=== PATIENT | female | born 1945 | race Caucasian/White ===

== ENCOUNTER 2017-04-15 16:00 | Outpatient (CLI) | payer MEDICARE ==
--- NOTE | 2017-04-16 08:37 | XRAY Report ---
RIGHT FOOT, THREE VIEWS: 04/15/2017 CLINICAL HISTORY: Pain in the right foot. COMPARISON: None. FINDINGS: Osteoporosis is noted. Bunion deformity of moderate degree is seen of the right 1st MP corbin int. Moderate degree of narrowing of the right 1st MP joint is seen. Subchondral cyst formation is noted along the medial aspect of the head of the right 1st metatarsal. Bony eburnation is seen about the head of the right 1st metatarsal. Adjacent soft tissue swelling is noted along the medial aspec t of the right 1st MP joint. Moderate degree of narrowing is noted at the articulation between the base of the 1st metatarsal and adjacent medial cuneiform bone. Prominent subchondral cyst formation is seen at the base of the 2nd metatarsal and mid cuneiform bone. Moderate degree of narrowing is seen between the base of the 3rd metatarsal and the middle cuneiform bone. Moderate degree of joint space narrowing is seen between t he base of the 4th metatarsal and cuboid bone. Mild narrowing is noted between the anterior aspect of the talus and navicular bone. IMPRESSION: 1. MILD OSTEOPOROSIS. 2. BUNION DEFORMITY IS NOTED AT THE RIGHT 1ST MP JOINT WITH ASSOCIATED MODERATE DEGREE OF OSTEOARTHR ITIS. ASSOCIATED MILD SOFT TISSUE SWELLING IS NOTED ALONG THE MEDIAL ASPECT OF THIS JOINT. 3. MODERATE DEGREE OF OSTEOARTHRITIS IS NOTED AT THE ARTICULATIONS BETWEEN THE BASE OF THE 1ST, 2ND, AND 3RD METATARSALS AND THE ADJACENT CUNEIFORM BONES. JOB #: [id number] EXT JOB #:[id number]
== END 2017-04-15 16:01 | disposition home or self-care (01) ==
LOC: DI 16:00
PROVIDERS: ATTEND Podiatrist
DX: M19.071 Primary osteoarthritis, right ankle and foot (principal); M21.621 Bunionette of right foot; M81.0 Age-related osteoporosis without current pathological fracture

== ENCOUNTER 2017-05-05 10:39 | Outpatient (CLI) | payer MEDICARE ==
--- NOTE | 2017-05-06 13:45 | DEXA Report ---
DEXA SCAN: 05/05/2017 CLINICAL INDICATION: Postmenopausal. TECHNIQUE: Dual energy x-ray absorptiometry (DXA) was performed on a [employer] system. Regions measured are the AP spine, femoral neck, and, if needed, forearm. COMPARISON: None. In accordance with the International Society for Clinical Densitometry (ISCD) guidelines, data from previous exams may be reanalyzed using current recommendations and techniques. This is done to allow a more accurate basis for comparison with the current study. FINDINGS: The data for the lumbar spine is as follows: REGION BMD (g/cm/cm) T-SCORE Z-SCORE L1 0.902 -1.9 -0.9 L2 0.865 -2.8 -1.8 L3 1.004 -1.6 -0.7 L4 1.039 -1.3 -0.4 TOTAL 0.959 -1.8 -0.9 NOTE: All evaluable vertebrae are used for classification. The data for the hip is as follows: REGION BMD (g/cm/cm) T-SCORE Z-SCORE Neck 0.890 -1.1 0.2 TOTAL 0.987 -0.2 0.9 NOTE: The femoral neck or total proximal femur, whichever is lowest, is used for classification. IMPRESSION: THE WHO CLASSIFICATION BASED ON THE INTERNATIONAL REFERENCE STANDARD IS OSTEOPENIA. THE FRACTURE RISK IS INCREASED. RECOMMENDATION: Patients with diagnosis of osteoporosis or osteopenia should have regular bone mineral density assessment. For those eligible for Medicare, routine testing is allowed once every 2 years. Testing frequency can be increased for patients who have rapidly progressing disease or for those who are receiving medical therapy to restore bone mass. COMMENT: World Health Organization (WHO) definitions for osteoporosis and osteopenia: NORMAL BMD: T-score at -1.0 or higher, fracture risk is low. OSTEOPENIA BMD: T-score between -1.0 and -2.5, fracture risk is increased. OSTEOPOROSIS BMD: T-score at -2.5 or lower, fracture risk high. National Osteoporosis Foundation recommends: 1. Obtain adequate dietary calcium (at least 1200 mg per day) and vitamin D (400 -800 international units per day). 2. Participate, as appropriate, in regular weightbearing and muscle- strengthening exercise. 3. Avoid tobacco use and reduce alcohol and caffeine intake. 4. For more detailed information see the website at www.NOF.org. MTDD
== END 2017-05-05 10:40 | disposition home or self-care (01) ==
LOC: DI 10:39
PROVIDERS: ATTEND Podiatrist
DX: M81.0 Age-related osteoporosis without current pathological fracture (principal); M85.89 Other specified disorders of bone density and structure, multiple sites
CPT/HCPCS: 77080

== ENCOUNTER 2017-12-28 10:43 | Outpatient (CLI) | payer MEDICARE ==
--- NOTE | 2017-12-28 14:49 | XRAY Report ---
DATE OF SERVICE: 12/28/2017 TWO VIEW CHEST: 12/28/2017 CLINICAL INDICATION: Upper respiratory infection. COMPARISON: 10/05/2009. FINDINGS: Frontal and lateral views of the chest demonstrate a normal cardiac silhouette. The lungs remain clear. No effusion or pneumothorax is present. IMPRESSION: NORMAL CHEST, UNCHANGED. TD: 12/28/2017 14:49
== END 2017-12-28 10:44 | disposition home or self-care (01) ==
LOC: DI 10:43
PROVIDERS: ATTEND Internal Medicine
DX: J06.9 Acute upper respiratory infection, unspecified (principal)
CPT/HCPCS: 71046

== ENCOUNTER 2018-04-19 11:40 | Outpatient (CLI) | payer MEDICARE ==
--- NOTE | 2018-04-19 12:46 | CT Report ---
CT SINUSES WITHOUT CONTRAST: 04/19/2018 CLINICAL INDICATION: Headache, chronic sinusitis. TECHNIQUE: Axial CT images of the sinuses were obtained without intravenous contrast, following which sagittal and coronal reconstructions were performed. FINDINGS: There is minimal mucosal thickening in the inferior aspects of the maxillary sinuses bilaterally. There is leftward deviation and spurring of the nasal septum. The ostiomeatal units are patent bilaterally. Patchy right ethmoid air cell opacification is present. The visualized intraorbital contents appear unremarkable. No osseous destruction is seen. IMPRESSION: MINIMAL CHRONIC SINUS DISEASE. LEFTWARD DEVIATION AND SPURRING OF THE NASAL SEPTUM. CT DOSE REDUCTION STATEMENT In accordance with CT protocol optimization, one or more of the following dose reduction techniques were utilized for this exam: automated exposure control, adjustment of mA and/or KV based on patient size, or use of iterative reconstructive technique. TD: 04/19/2018 12:27
== END 2018-04-19 11:41 | disposition home or self-care (01) ==
LOC: DI 11:40
PROVIDERS: ATTEND Otolaryngology
DX: J32.8 Other chronic sinusitis (principal); R51 Headache
CPT/HCPCS: 70486

== ENCOUNTER 2018-10-21 11:05 | Outpatient (CLI) | payer MEDICARE ==
--- NOTE | 2018-10-24 09:43 | Mammography Report ---
Reason: SCREENING MAMMO Procedure Date: 10/21/2018 Accession Number: [id number] / [id number] Procedure: LUCERO - Screening Mammo w/Gerardo CPT Code: FULL RESULT: EXAM: Screening Mammo w/Gerardo DATE: 10/21/2018 11:35 AM CLINICAL HISTORY: Screening encounter. History of nulliparity and family history of breast cancer in a grandmother at age 62. TECHNIQUE: Bilateral CC and MLO views were obtained. COMPARISON: 07/16/2016 through 10/12/2011. FINDINGS: The breasts demonstrate scattered fibroglandular densities bilaterally. A coarse typically benign calcification is noted in the right breast. No suspicious masses, clustered microcalcifications, or regions of architectural distortion are identified. IMPRESSION: Benign findings RECOMMENDATION: Routine annual screening unless otherwise clinically indicated. BIRADS CATEGORY 2: Benign findings STANDARD QUALIFYING STATEMENTS: 1. This examination was not reviewed with the aid of Computer-Aided Detection (CAD). 2. A negative or benign imaging report should not preclude biopsy if clinically suspicious findings are present. 3. Dense breasts may obscure an underlying neoplasm. 4. This examination was reviewed without the aid of 3D breast imaging (tomosynthesis).
== END 2018-10-21 11:06 | disposition home or self-care (01) ==
LOC: DI 11:05
PROVIDERS: ATTEND Internal Medicine
DX: Z12.31 Encounter for screening mammogram for malignant neoplasm of breast (principal); Z80.3 Family history of malignant neoplasm of breast
CPT/HCPCS: 77063; 77067

== ENCOUNTER 2019-03-07 16:39 | Observation (INO) | payer MEDICARE ==
--- NOTE | 2019-03-07 17:05 | ED Physician Documentation ---
PD HPI CHEST PAIN - Stated complaint Stated Complaint: ABNORMAL EKG/SENT BY DR - Chief complaint Chief Complaint: Cardiac - History obtained from History obtained from: Patient - History of Present Illness Timing - onset: Other (2 weeks intermittent substernal chest pressure, non radiating, sometimes exertional, sometimes not. Today more constant since 1pm, went to her MDs office, concern for abn EKG and referred to ED.) Review of Systems Ten Systems: 10 systems reviewed and negative Constitutional: reports: Fatigue Nose: denies: Rhinorrhea / runny nose, Congestion Cardiac: reports: Chest pain / pressure. 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: Hysterectomy, Other - Present Medications Home Medications: Ambulatory Orders Medication Instructions Recorded Confirmed Ibuprofen [Advil] 200 mg PO DAILY 03/09/16 03/07/19 - Allergies Allergies/Adverse Reactions: Allergies Allergy/AdvReac Type Severity Reaction Status Date / Time Sulfa (Sulfonamide Allergy Respiratory Verified 03/07/19 16:51 Antibiotics) - Social History Does the pt smoke?: No Does the pt drink ETOH?: No - Family History Family history: reports: Non contributory PD ED PE NORMAL - Vitals Vital signs reviewed: Yes - General General: Alert and oriented X 3, No acute distress - HEENT HEENT: PERRL, EOMI - Neck Neck: Supple, no meningeal sign, No bony TTP - Cardiac Cardiac: RRR, No murmur - Respiratory Respiratory: No respiratory distress, Clear bilaterally - Abdomen Abdomen: Soft, Non tender - Back Back: No CVA TTP - Derm Derm: Normal color, Warm and dry - Extremities Extremities: No edema, No calf tenderness / cord - Neuro Neuro: Alert and oriented X 3, Normal speech Results - Vitals Vitals: Vital Signs - 24 hr 03/07/19 16:49 Temperature 36.3 C L Heart Rate 92 Respiratory 15 Rate Blood Pressure 190/94 H O2 Saturation 97 Oxygen O2 Source Room air - EKG (time done) 1657 Rate: Rate (enter#) (89) Rhythm: NSR [place]: Normal Intervals: Normal [place] QRS: Normal Ischemia: Normal ST segments Computer interpretation: Agree with computer - Labs Labs: Laboratory Tests 03/07/19 03/07/19 03/07/19 16:55 16:55 16:55 WBC 7.2 RBC 4.56 Hgb 13.7 Hct 41.9 MCV 91.7 MCH 30.0 MCHC 32.7 RDW 13.5 Plt Count 235 MPV 7.7 L Neut # (Auto) 4.8 Lymph # (Auto) 1.7 [place] # (Auto) 0.5 Eos # (Auto) 0.2 Baso # (Auto) 0.1 Absolute Nucleated RBC 0.00 Nucleated RBC % 0.0 Sodium 136 Potassium 3.9 Chloride 103 Carbon Dioxide 25 Anion Gap 8.0 BUN 20 Creatinine 0.6 Estimated GFR (MDRD) 98 Glucose 93 Calcium 9.8 Total Bilirubin 0.6 AST 23 ALT 20 Alkaline Phosphatase 75 Troponin I < 0.04 Total Protein 7.0 Albumin 4.5 Globulin 2.5 Albumin/Globulin Ratio 1.8 Lipase 30 PD MEDICAL DECISION MAKING - ED course ED course: 73-year-old woman with a story concerning for crescendo angina. EKG and biomarkers are negative here. Spoke with Dr. Dugan for observation at 5:35 PM. Departure - Departure Disposition: ED Place in Observation Clinical Impression: Chest pain Condition: Stable
[2019-03-07 17:08] LABS: BASOPHILS # (AUTO) 0.1 10^3/uL (0.0-0.1); BASOPHILS % (AUTO) 0.9 %; EOSINOPHILS # (AUTO) 0.2 10^3/uL (0.0-0.7); HGB - HEMOGLOBIN 13.7 g/dL (12.0-16.0); LYMPHOCYTES # (AUTO) 1.7 10^3/uL (1.5-3.5); LYMPHOCYTES % (AUTO) 23.5 %; MEAN CORPUSCULAR HGB CONC 32.7 g/dL (32.0-36.0); MEAN CORPUSCULAR VOLUME 91.7 fL (81.0-99.0); MEAN PLATELET VOLUME 7.7 fL (7.9-10.8); MONOCYTES # (AUTO) 0.5 10^3/uL (0.0-1.0); MONOCYTES % (AUTO) 6.4 %; NEUTROPHILS # (AUTO) 4.8 10^3/uL (1.5-6.6); NEUTROPHILS % (AUTO) 66.2 %; PLT - PLATELET COUNT 235 10^3/uL (130-450); RED BLOOD COUNT 4.56 10^6/uL (4.20-5.40); RED CELL DISTRIBUTION WIDTH 13.5 % (12.0-15.0); WHITE BLOOD COUNT 7.2 x10^3/uL (4.8-10.8)
[2019-03-07 17:19] LABS: ALBUMIN 4.5 g/dL (3.2-5.5); ALBUMIN/GLOBULIN RATIO 1.8 (1.0-2.2); BILIRUBIN,TOTAL 0.6 mg/dL (0.2-1.0); CALCIUM 9.8 mg/dL (8.5-10.3); CREATININE 0.6 mg/dL (0.4-1.0)
[2019-03-07] MEDS ORDERED: ASPIRIN CHEW 81 MG TABLET PO STA (17:33)
[2019-03-07] MEDS ORDERED: NITROGLYCERIN 2% PASTE TOP STA (17:33)
[2019-03-07] MEDS ORDERED: METOPROLOL TARTRATE 50 MG TABLET PO STA (17:33)
[2019-03-07] MEDS ORDERED: MORPHINE 2 MG/ML SYRINGE IVP PRN (17:49)
[2019-03-07] MEDS ORDERED: ZOLPIDEM 5 MG TABLET PO PRN (17:49)
[2019-03-07] MEDS ORDERED: SODIUM CHLORIDE FLUSH 0.9% 10 ML SYRINGE IVP PRN (17:49)
[2019-03-07] MEDS ORDERED: ONDANSETRON 4 MG/2 ML VIAL IVP PRN (17:49)
--- NOTE | 2019-03-07 17:56 | HISTORY & PHYSICAL EXAMINATION ---
Chief Complaint - Chief Complaint Chief Complaint: chest pain History of Present Illness - History of Present Illness HPI Comment/Other: Mr. Rivera is 73-yrs-old female without significant medical history, who present ER complain of 2 weeks intermittent substernal chest pressure and pain. She report her chest pain is consistent today. She had 2 weeks intermittent substernal chest pressure and pain before. Her chest pain located anterior left chest, left shoulder and left back. She also report she felt shortness of breath sometimes on exertion. She report this has never happened to her before. She denies nausea, vomiting, sweating associated with her chest pain. She went to her PCP office. Her PCP office concern her abnormal EKG and referred her to ED. Her initial troponin is negative, D-dimer is less 200. EKG reveals SR. Pt's vital is hemodynamical stable in ER. Pt is admitted for chest pain and workup. History - Past Medical History Cardiovascular: reports: Murmur Respiratory: reports: Other Endocrine/Autoimmune: reports: None GI: reports: Colon polyps : reports: None HEENT: reports: Chronic sinusitis Psych: reports: Claustrophobia Musculoskeletal: reports: Osteoarthritis Derm: reports: None MRSA Hx?: No - Past Surgical History General: reports: Appendectomy, Colonoscopy Ortho: reports: Arthroscopic surgery /[employer]OR [employer] HOME [employer]ALTH SERVICES: reports: Hysterectomy, Other - Family & Social History Family History: Mother: , Cancer, Father: , Cancer Family History Comment/Other: pt report her father and mother from cancer. she did not know which kind of cancer. She did not and she did not have child. she is living in [facility] Living arrangement: At home Social History Notes: pt report she never smoke. she has no issue for alcohol and drug abuse. - POLST POLST Status: Full Code Meds/Allgy - Home Medications Home Medications: Ambulatory Orders Medication Instructions Recorded Confirmed Ibuprofen [Advil] 200 mg PO DAILY 03/09/16 03/07/19 - Allergies Allergies/Adverse Reactions: Allergies Allergy/AdvReac Type Severity Reaction Status Date / Time Sulfa (Sulfonamide Allergy Respiratory Verified 03/07/19 16:51 Antibiotics) Review of Systems - Constitutional Constitutional: denies: Fatigue, Fever, Chills, Malaise, Weakness, Poor appetite, Diaphoresis, Night sweats - Eyes Eyes: denies: Pain, Irritation, Amaurosis, Blurred vision, Spots in vision, Field loss, Vision loss, Dipolpia - Ears, Nose & Throat Ears, Nose & Throat: denies: Ear pain, Hearing loss, Hearing aids, Tinnitus, Vertigo, Nasal pain, Nasal discharge, Nosebleeds, Nasal obstruction, Nasal congestion, Postnasal drainage, Dentures, Sore throat, Hoarseness, Mouth lesions, Bleeding gums - Cardiovascular Cariovascular: reports: Chest pain, Exertional dyspnea. denies: Irregular heart rate, Palpitations, Edema, Lightheadedness, Syncope, Decr. exercise tolerance, Orthopnea - Respiratory Respiratory: denies: Cough, Sputum production, Wheezing, Snoring, Hemoptysis, Orthopnea, SOB at rest, SOB with exertion, Apnea, Stridor - Gastrointestinal Gastrointestinal: denies: Abdominal pain, Abdominal distention, Constipation, Diarrhea, Change in bowel habits, Rectal bleeding, Black stools, Bloody stools, Nausea, Vomiting, Bile emesis, Vel blood emesis, Coffee grounds emesis, Reflux/heartburn - Genitourinary Genitourinary: denies: Dysuria, Frequency, Urgency, Hematuria, Incontinence, Flank pain, Nocturia, Urethral discharge - Musculoskeletal Musculoskeletal: denies: Muscle pain, Back pain, Muscle aches, Stiffness, Limited range of motion, Muscle weakness, Gout, Joint pain - Integumentary Integumentary: denies: Rash, Pruritis, Lesions, Dryness, Lumps, Acne, Pigment changes, Nail changes - Neurological Neurological: denies: General weakness, Focal weakness, Headache, Dizziness, Numbness, Memory problems, Pre-existing deficit, Abnormal gait, Seizures, Incoordination - Psychiatric Psychiatric: denies: Depression, Anxiety, Suicidal, Delusions, Hallucinations, Homicidal - Endocrine Endocrine: denies: Polyuria, Polydypsia, Polyphagia, Intolerance to cold - Hematologic/Lymphatic Hematologic/Lymphatic: denies: Anemia, Bruising, Petechiae, Blood clots, Lymphadenopathy, Bleeding tendencies Prior Level of Functionality: pt is living independently Exam - Vital Signs Reviewed Vital Signs: Yes Vital Signs: Vital Signs x48h Temp Pulse Resp BP Pulse Ox 03/07/19 17:39 77 15 151/73 H 97 03/07/19 16:49 36.3 C L 92 15 190/94 H 97 - Physical Exam General Appearance: positive: No acute distress, Alert. negative: Lethargic Eyes Bilateral: positive: Normal inspection, PERRL, No lid inflammation, Conjunctivae nml ENT: positive: ENT inspection nml, Pharynx nml, No signs of dehydration. negative: Purulent nasal drainage, Pharyngeal erythema, Oral lesions Neck: positive: Nml inspection, Thyroid nml, No JVD, Trachea midline. negative: Thyromegaly, Lymphadenopathy (R), Lymphadenopathy (L), Stiff neck, Swelling/bruising, Tracheal deviation Respiratory: positive: Chest non-tender, No respiratory distress, Breath sounds nml. negative: Wheezes, Rales, Rhonchi Cardiovascular: positive: Regular rate & rhythm, No murmur, No gallop. negative: Irregularly irregular, Extrasystoles, Tachycardia, Bradycardia, JVD present, Systolic murmur, Diastolic murmur Peripheral Pulses: positive: 2+ Abdomen: positive: Non-tender, No organomegaly, Nml bowel sounds, No distention. negative: Tenderness, Guarding, Rebound Back: positive: Nml inspection. negative: CVA tenderness (R), CVA tenderness (L) Skin: positive: Color nml, No rash, Warm, Dry. negative: Cyanosis, Diaphoresis, Pallor Extremities: positive: Non-tender, Full ROM, Nml appearance. negative: Calf tenderness, Joint swelling, Nancy's sign/cords Neurologic/Psychiatric: positive: Oriented x3, Motor nml, Sensation nml, Mood/affect nml. negative: Weakness, Sensory loss, Facial droop, Slurred/abnml speech, Depressed mood/affect Sepsis Event Note (H) - Evaluation Current Stage of Sepsis: Ruled out Conclusion/Plan - Problem List (1) Chest pain Conclusion/Plan: pt has no cardiac history, has no any cardiac workup. pt also report she had SOB when she walked. Chest pain is more likely pressure on anterior, shoulder and neck. initial troponin and EKG are unremarkable. serial troponin start on Aspirin Nitro PRN, Morphine PRN ECHO stress test, Lexican, pt prefer to have, will followup the result on tele and vital monitor Qualifiers: Chest pain type: unspecified Qualified Code(s): R07.9 - Chest pain, unspecified (2) Shortness of breath on exertion Conclusion/Plan: pt report SOB on exertion, it is new to pt. check the D-dimer, negative. D-dimer specifically is high, not indicate on clots on lung will do Stress test on tomorrow (3) HTN (hypertension) Conclusion/Plan: pt has elevated BP on ER. it has no HTN hx. it could be caused by anxiety and distress on hospital add PRN hydralazine tele and vital monitor (4) Do not intubate, cardiopulmonary resuscitation (CPR)-only code status Conclusion/Plan: pt request DNR clearly - Lab Results Fish Bones: 03/08/19 04:15 03/08/19 04:15 Core Measures - Anticipated LOS I expect patient to be DC'd or transferred within 96 hours.: Yes - DVT/VTE - Prophylaxis VTE/DVT Device ordered at admit?: Yes VTE/DVT Prophylaxis med ordered at admit?: Yes
[2019-03-07] MEDS ORDERED: hydrALAZINE INJ 20 MG/ML VIAL IVP PRN (18:11)
--- NOTE | 2019-03-07 20:25 | XRAY Report ---
Reason: chest pain Procedure Date: 03/07/2019 Accession Number: [id number] / [id number] Procedure: XR - Chest 1 View X-Ray CPT Code: 24310 FULL RESULT: EXAM: CHEST RADIOGRAPHY EXAM DATE: 03/07/2019 06:29 PM. CLINICAL HISTORY: Chest pain. COMPARISON: CHEST 2 VIEW 12/28/2017 11:16 AM. TECHNIQUE: 1 view. FINDINGS: Lungs/Pleura: No focal opacities evident. No pleural effusion. No pneumothorax. Mediastinum: Within exam limitations, the cardiomediastinal contour is normal. Other: ECG leads overlie the chest. IMPRESSION: No acute findings. RADIA
[2019-03-07] MEDS: FAMOTIDINE 20 MG TABLET PO SCH (21:02)
[2019-03-07] MEDS: ACETAMINOPHEN 325 MG TABLET PO PRN (21:02)
[2019-03-08] MEDS: SODIUM CHLORIDE FLUSH 0.9% 10 ML SYRINGE IVP SCH ×2 (01:20→08:38)
[2019-03-08 04:51] LABS: BASOPHILS % (AUTO) 0.7 %; EOSINOPHILS # (AUTO) 0.3 10^3/uL (0.0-0.7); EOSINOPHILS % (AUTO) 4.5 %; HGB - HEMOGLOBIN 12.5 g/dL (12.0-16.0); LYMPHOCYTES # (AUTO) 1.9 10^3/uL (1.5-3.5); LYMPHOCYTES % (AUTO) 32.2 %; MEAN CORPUSCULAR HEMOGLOBIN 30.1 pg (27.0-31.0); MEAN CORPUSCULAR HGB CONC 32.8 g/dL (32.0-36.0); MEAN CORPUSCULAR VOLUME 91.7 fL (81.0-99.0); MEAN PLATELET VOLUME 7.8 fL (7.9-10.8); MONOCYTES # (AUTO) 0.5 10^3/uL (0.0-1.0); MONOCYTES % (AUTO) 9.2 %; NEUTROPHILS # (AUTO) 3.1 10^3/uL (1.5-6.6); NEUTROPHILS % (AUTO) 53.4 %; PLT - PLATELET COUNT 223 10^3/uL (130-450); RED BLOOD COUNT 4.16 10^6/uL (4.20-5.40); RED CELL DISTRIBUTION WIDTH 13.4 % (12.0-15.0); WHITE BLOOD COUNT 5.7 x10^3/uL (4.8-10.8)
[2019-03-08 05:05] LABS: ALBUMIN 3.7 g/dL (3.2-5.5); ALBUMIN/GLOBULIN RATIO 1.6 (1.0-2.2); BILIRUBIN,TOTAL 0.7 mg/dL (0.2-1.0); CALCIUM 9.5 mg/dL (8.5-10.3); CREATININE 0.6 mg/dL (0.4-1.0); MAGNESIUM 2.4 mg/dL (1.7-2.8)
[2019-03-08] MEDS ORDERED: ASPIRIN 325 MG TABLET PO SCH (08:00)
[2019-03-08] MEDS: FAMOTIDINE 20 MG TABLET PO SCH (08:33)
[2019-03-08] MEDS ORDERED: NITROGLYCERIN SL 0.4 MG TABLET SL PRN (08:45)
[2019-03-08] MEDS ORDERED: POLYETHYLENE GLYCOL 3350 17 GM PACKET PO SCH (09:00)
[2019-03-08] MEDS ORDERED: ENOXAPARIN 40 MG/0.4 ML SYRINGE SUBQ SCH (09:00)
[2019-03-08] MEDS: ACETAMINOPHEN 325 MG TABLET PO PRN (09:20)
[2019-03-08] MEDS ORDERED: REGADENOSON 0.4 MG/5 ML SYRINGE IVP ONE ×2 (11:30→12:28)
[2019-03-08 12:15] VITALS: BP 149/72
--- NOTE | 2019-03-08 14:19 | Nuclear Medicine Report ---
Reason: CHEST PAIN Procedure Date: 03/08/2019 Accession Number: [id number] / [id number] Procedure: NM - Myocardial Perfusion STR/RST CPT Code: FULL RESULT: EXAM: SINGLE-ISOTOPE PHARMACOLOGICAL STRESS TEST WITH REGADENOSON. SINGLE-ISOTOPE AND ONE-DAY REST/STRESS MYOCARDIAL PERFUSION SCANS WITH TOMOGRAPHIC IMAGING, QUANTITATIVE ANALYSIS, WALL MOTION ANALYSIS AND CALCULATION OF EJECTION FRACTION. EXAM DATE: 03/08/2019 10:49 AM. CLINICAL HISTORY: CHEST PAIN. COMPARISON: None available. TECHNIQUE: After the intravenous administration of 10.4 mCi of Tc-99m sestamibi, a rest myocardial perfusion scan was done with tomography. Motion correction was applied when appropriate. After an appropriate delay, pharmacological stress was performed with the infusion of 0.4 mg regadenoson per protocol. According to protocol, 40.4 mCi of Tc-99m sestamibi was injected for stress myocardial perfusion scan. Motion correction was applied when appropriate. Gated tomographic images were obtained for wall motion analysis and computation of left ventricular ejection fraction. FINDINGS: On visual analysis, there is decreased activity in the septum, more pronounced on the rest images compared to the stress images. No convincing significant reversible perfusion defects. Computer analysis. Summed stress score 4 Summed rest score 4 Summed difference score 0 Wall motion analysis demonstrates no focal wall motion abnormality. The left ventricular end-diastolic volume is 54 cc. The left ventricular end-systolic volume is 2 cc. The left ventricular ejection fraction is calculated to be 97%. IMPRESSION: 1. Decreased activity in the septum, more pronounced on the rest images compared to the stress images, old infarct versus normal variant septal thinning. No convincing reversible perfusion defects. 2. Left ventricular ejection fraction of >65%. 3. No focal wall motion abnormality. 4. Normal left ventricular cavity size, no change with stress. 5. Based on computer analysis, mildly abnormal study with no ischemia. Please correlate findings with stress ECG tracings and procedure notes. RADIA
--- NOTE | 2019-03-08 14:41 | Discharge Plan ---
Discharge Plan Disposition: 01 Home, Self Care Condition: Stable Diet: Regular Activity Restrictions: Activity as Tolerated Shower Restrictions: No (fall precaution) Additional Instructions or Follow Up instructions: You may followup your PCP in one to two weeks. Your studies of ECHO, stress test, EKG, troponin serial test all were unremarkable. Should your symptoms return or worsen, you may present ER or call 911 for help. No Smoking: If you smoke, Please STOP! Call for help. Follow-up with: SANDI CEE MD [Primary Care Provider] -
--- NOTE | 2019-03-08 14:42 | DISCHARGE SUMMARY ---
Discharge Summary Discharge Date: 03/08/19 Discharging Provider: [facility] Primary Care Provider: Dr. Chandra Condition at Discharge: Stable Discharge Disposition: 01 Home, Self Care Discharge Facility Name: [facility] - DIAGNOSES Admission Diagnoses: (1) Chest pain (2) Shortness of breath on exertion (3) HTN (hypertension) Discharge Diagnoses with Status of Each Condition: 1) Chest pain (2) Shortness of breath on exertion (3) HTN (hypertension) - HPI History of Present Illness: Mr. Rivera is 73-yrs-old female without significant medical history, who present ER complain of 2 weeks intermittent substernal chest pressure and pain. She report her chest pain is consistent today. She had 2 weeks intermittent substernal chest pressure and pain before. Her chest pain located anterior left chest, left shoulder and left back. She also report she felt shortness of breath sometimes on exertion. She report this has never happened to her before. She denies nausea, vomiting, sweating associated with her chest pain. She went to her PCP office. Her PCP office concern her abnormal EKG and referred her to ED. Her initial troponin is negative, D-dimer is less 200. EKG reveals SR. Pt's vital is hemodynamical stable in ER. Pt is admitted for chest pain and workup. - HOSPITAL COURSE Hospital Course: 1) Chest pain resolved. pt has no more chest pain. pt's ECHO, EKG, serial Troponin, stress test all unremarkable. muscle spasm may be the etiology (2) Shortness of breath on exertion resolved. pt report she had no SOB when she walk. D-dimer is less 200. (3) HTN (hypertension) stable. - ALLERGIES Allergies/Adverse Reactions: Allergies Allergy/AdvReac Type Severity Reaction Status Date / Time Sulfa (Sulfonamide Allergy Respiratory Verified 03/07/19 16:51 Antibiotics) - MEDICATIONS Home Medications: Ambulatory Orders Medication Instructions Recorded Confirmed Ibuprofen [Advil] 200 mg PO DAILY 03/09/16 03/07/19 - PHYSICAL EXAM AT DISCHARGE General Appearance: positive: No acute distress, Alert. negative: Lethargic Eyes Bilateral: positive: Normal inspection, PERRL, No lid inflammation, Conj unctivae nml ENT: positive: ENT inspection nml, Pharynx nml, No signs of dehydration. negative: Purulent nasal drainage, Pharyngeal erythema, Oral lesions Neck: positive: Nml inspection, Thyroid nml, No JVD, Trachea midline. negative: Thyromegaly, Lymphadenopathy (R), Lymphadenopathy (L), Stiff neck, Swelling/bruising, Tracheal deviation Respiratory: positive: Chest non-tender, No respiratory distress, Breath sounds nml. negative: Wheezes, Rales, Rhonchi Cardiovascular: positive: Regular rate & rhythm, No murmur, No gallop. negative: Irregularly irregular, Extrasystoles, Tachycardia, Bradycardia, JVD present, Systolic murmur, Diastolic murmur Peripheral Pulses: positive: 2+ Abdomen: positive: Non-tender, No organomegaly, Nml bowel sounds, No distention. negative: Tenderness, Guarding, Rebound Back: positive: Nml inspection. negative: CVA tenderness (R), CVA tenderness (L) Skin: positive: Color nml, No rash, Warm, Dry. negative: Cyanosis, Diaphoresis, Pallor Extremities: positive: Non-tender, Full ROM, Nml appearance. negative: Calf tenderness, Joint swelling, Nancy's sign/cords Neurologic/Psychiatric: positive: Oriented x3, Motor nml, Sensation nml, Mood/affect nml. negative: Weakness, Sensory loss, Facial droop, Slurred/abnml speech, Depressed mood/affect - LABS Result Diagrams: 03/08/19 04:15 03/08/19 04:15 - SEPSIS Current Stage of Sepsis: Ruled out - FOLLOW UP Follow Up: You may followup your PCP in one to two weeks. Your studies of ECHO, stress test, EKG, troponin serial test all were unremarkable. Should your symptoms return or worsen, you may present ER or call 911 for help. - TIME SPENT Time Spent in Discharge (Minutes): 50
== END 2019-03-08 15:25 | disposition home or self-care (01) ==
LOC: ED 16:39 → OBS 17:49
PROVIDERS: ADMIT Nurse Practitioner Gerontology; ATTEND Nurse Practitioner Gerontology
DX: R07.89 Other chest pain (principal); R06.02 Shortness of breath; I10 Essential (primary) hypertension; R01.1 Cardiac murmur, unspecified; J32.9 Chronic sinusitis, unspecified; F40.240 Claustrophobia; M19.90 Unspecified osteoarthritis, unspecified site; Z66 Do not resuscitate; Z79.1 Long term (current) use of non-steroidal anti-inflammatories (NSAID)
CPT/HCPCS: 36415; 71045; 78452; 80053; 83690; 83735; 84484; 85025; 85379; 93005; 93017; 93306; 97161; 99283; 99284; A9270; A9500; G0378; J2785

== ENCOUNTER 2019-03-14 16:02 | Outpatient (CLI) | payer MEDICARE ==
--- NOTE | 2019-03-15 10:42 | XRAY Report ---
Reason: PARESTHESIA OF SKIN Procedure Date: 03/14/2019 Accession Number: [id number] / [id number] Procedure: XR - Cervical Spine 2 View CPT Code: FULL RESULT: EXAM: CERVICAL SPINE RADIOGRAPHY EXAM DATE: 03/14/2019 04:19 PM. CLINICAL HISTORY: Paresthesia of skin. COMPARISONS: None. TECHNIQUE: 3 views. FINDINGS: Alignment: Normal. No spondylolisthesis or scoliosis. Bones: The cervical vertebral bodies and posterior elements are well visualized from the skull base through C7-T1. No fractures or bone lesions. Disks: Multilevel loss of disk space height is most pronounced at C5-C6. Facets: Moderate lateral mass arthropathy throughout the cervical spine including osteophytosis versus segmentation irregularity of the lateral mass of the cervical spine on the left likely around C5. Soft Tissues: Normal. No prevertebral soft tissue swelling. The visualized lung apices are clear. IMPRESSION: At least moderate degenerative changes as described. RADIA
== END 2019-03-14 16:03 | disposition home or self-care (01) ==
LOC: DI 16:02
PROVIDERS: ATTEND Internal Medicine
DX: M50.322 Other cervical disc degeneration at C5-C6 level (principal); M47.9 Spondylosis, unspecified
CPT/HCPCS: 72040

== ENCOUNTER 2021-01-01 12:34 | Outpatient (CLI) | payer MEDICARE ==
--- NOTE | 2021-01-02 09:33 | Mammography Report ---
BILATERAL DIGITAL SCREENING MAMMOGRAM 3D/2D: 01/01/2021 CLINICAL: Routine screening. Comparison is made to exams dated: 10/21/2018 mammogram, 07/16/2016 mammogram, 05/16/2015 mammogram, a nd 05/31/2013 mammogram - [facility]. The tissue of both breasts is predominantly f atty. No significant masses, calcifications, or other findings are seen in either breast. There has been no significant interval change. IMPRESSION: NEGATIVE There is no mammographic evidence of malignancy. A 1 year screening mammogram is recommended. This exam was interpreted at Station ID: [id number]. NOTE: For mammograms, a report in lay terms will be sent to the patient. Approximately 15% of breast malignancies will not be visualized mammographically. In the management of a palpable breast mass, a negative mammogram must not discourage biopsy of a clinically suspicious lesion. Electronically Signed By: Dion Fuchs acr/penrad:01/01/2021 14:35:20 ACR BI-RADS Category 1: Negative 3341F PARENCHYMAL PATTERN: (F) - The breast(s) demonstrate(s) diffuse fatty replacement. BI-RADS CATEGORY: (1) - 1 RECOMMENDATION: (ANNUAL) - Recommend routine annual screening mammography. [id number] 1 year screening LATERALITY: (B)
== END 2021-01-01 12:35 | disposition home or self-care (01) ==
LOC: DI 12:34
PROVIDERS: ATTEND Physician Assistant
DX: Z12.31 Encounter for screening mammogram for malignant neoplasm of breast (principal)

== ENCOUNTER 2021-02-14 10:23 | Outpatient (CLI) | payer MEDICARE ==
--- NOTE | 2021-02-14 11:39 | XRAY Report ---
PROCEDURE: Hand 3 View BILAT INDICATIONS: PAIN IN BILAT HANDS TECHNIQUE: 3 views of the left hand and 2 views of the right hand acquired. COMPARISON: None FINDINGS: Bones: No fractures or dislocations. No suspicious bony lesions. There is a pattern of moderately severe symmetric bilateral hand joint degenerative osteoarthritis, with symmetric degree of involveme nt and with erosive arthritic changes involving the inner phalangeal joints of the [id number] articulations bilaterally, with relative sparing of the thumbs. Soft tissues: No suspicious soft tissue calcifications. 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 No trauma fou nd. Reviewed by: Donovan Mendez MD on 02/14/2021 11:38 AM PDT Approved by: Donovan Mendez MD on 02/14/2021 11:38 AM PDT Station ID: [id number]
--- NOTE | 2021-02-14 11:41 | XRAY Report ---
PROCEDURE: Knee 3 View RT INDICATIONS: STRAIN OF UNSPEC MUSCLE AND TENDON, RLE TECHNIQUE: 3 views of the right knee(s) were acquired. COMPARISON: None. FINDINGS: Bones: No fractures or dislocations. No suspicious bony lesions. Soft tissues: No joint effusion. No suspicious soft tissue calcifications. IMPRESSION: There is mild narrowing of the medial and lateral compartment joint interspace indicatin g presence of mild osteoarthritis in those areas. There is moderately severe degenerative osteoarthri tic change at the lateral facet of the patellofemoral joint. No acute trauma found. Reviewed by: Donovan Mendez MD on 02/14/2021 11:40 AM PDT Approved by: Donovan Mendez MD on 02/14/2021 11:40 AM PDT Station ID: [id number]
== END 2021-02-14 10:24 | disposition home or self-care (01) ==
LOC: DI.S 10:23
PROVIDERS: ATTEND Nurse Practitioner Family
DX: M19.042 Primary osteoarthritis, left hand (principal); M19.041 Primary osteoarthritis, right hand; M17.11 Unilateral primary osteoarthritis, right knee

== ENCOUNTER 2021-03-11 15:01 | Outpatient (CLI) | payer MEDICARE ==
--- NOTE | 2021-03-11 16:59 | DEXA Report ---
PROCEDURE: Dexa Spine and/or Hip INDICATIONS: POST MENOPAUSAL TECHNIQUE: Dual energy x-ray absorptiometry (DXA) was performed on a [employer] System. Regions measur ed are the AP Spine, femoral neck, and if needed forearm. COMPARISON: None. FINDINGS: Lumbar Spine: Bone Mineral Density 0.910 g/cm/cm,T score -2.3 compared to -1.8., Left Hip: Bone Mineral Density 1.01 g/cm/cm,T score 0 compared to -2.2., Left Femoral Neck: Bone Mineral Density 0.878 g/cm/cm, T score -1.2, compared to -1.1. (T score greater or equal to -1.0: NORMAL) (T score from -1.1 to -2.4: OSTEOPENIA) (T score less than or equal to -2.5 to: OSTEOPOROSIS) Impression: Progression of bone density loss within the lumbar spine, now severe osteopenic. Relative ly stable appearance of minimal osteopenia within the left femoral neck. Patients with diagnosis of osteoporosis or osteopenia should have regular bone mineral density assess ment. For those eligible for Medicare, routine testing is allowed once every 2 years. Testing frequ ency can be increased for patients who have rapidly progressing disease or for those who are receivin g medical therapy to restore bone mass. Reviewed by: Merry Jacobsen MD on 03/11/2021 4:57 PM PDT Approved by: Merry Jacobsen MD on 03/11/2021 4:57 PM PDT Station ID: [id number]
== END 2021-03-11 15:02 | disposition home or self-care (01) ==
LOC: DI 15:01
PROVIDERS: ATTEND Nurse Practitioner Family
DX: M85.89 Other specified disorders of bone density and structure, multiple sites (principal)

== ENCOUNTER 2021-08-22 12:15 | Outpatient (CLI) | payer MEDICARE | END 2021-08-22 23:59 | disposition home or self-care (01) | LOC: LAB.S 12:15 | PROVIDERS: ATTEND Emergency Medicine | DX: R42 Dizziness and giddiness (principal); Z20.822 Contact with and (suspected) exposure to COVID-19 ==

== ENCOUNTER 2023-03-17 07:00 | Outpatient (CLI) | payer MEDICARE ==
--- NOTE | 2023-03-17 15:50 | XRAY Report ---
PROCEDURE: Chest 2 View X-Ray INDICATIONS: COUGH TECHNIQUE: 2 views of the chest were acquired. COMPARISON: Chest x-ray 03/07/2019 FINDINGS: Surgical changes and devices: None. Lungs and pleura: No pleural effusions or pneumothorax. Lungs are clear. Mediastinum: Mediastinal contours appear normal. Heart size is normal. Bones and chest wall: No suspicious bony lesions. Overlying soft tissues appear unremarkable. IMPRESSION: No acute pulmonary process. Reviewed by: Merry Jacobsen MD on 03/17/2023 3:48 PM PDT Approved by: Merry Jacobsen MD on 03/17/2023 3:48 PM PDT Station ID: [id number]
== END 2023-03-17 23:59 | disposition home or self-care (01) ==
LOC: DI.S 07:00
PROVIDERS: ATTEND Nurse Practitioner
DX: R05.9 Cough, unspecified (principal)

== ENCOUNTER 2023-09-07 08:53 | Outpatient (CLI) | payer MEDICARE ==
[2023-09-07 15:13] LABS: BASOPHILS # (AUTO) 0.1 10^3/uL (0.0-0.1); BASOPHILS % (AUTO) 1.1 %; EOSINOPHILS # (AUTO) 0.2 10^3/uL (0.0-0.7); EOSINOPHILS % (AUTO) 4.6 %; HCT - HEMATOCRIT 42.2 % (37.0-47.0); HGB - HEMOGLOBIN 13.5 g/dL (12.0-16.0); LYMPHOCYTES # (AUTO) 1.1 10^3/uL (1.5-3.5); LYMPHOCYTES % (AUTO) 21.3 %; MEAN CORPUSCULAR HEMOGLOBIN 30.1 pg (27.0-31.0); MEAN CORPUSCULAR VOLUME 94.2 fL (81.0-99.0); MEAN PLATELET VOLUME 10.3 fL (7.9-10.8); MONOCYTES # (AUTO) 0.4 10^3/uL (0.0-1.0); MONOCYTES % (AUTO) 7.5 %; NEUTROPHILS # (AUTO) 3.4 10^3/uL (1.5-6.6); NEUTROPHILS % (AUTO) 65.3 %; PLT - PLATELET COUNT 256 10^3/uL (130-450); RED BLOOD COUNT 4.48 10^6/uL (4.20-5.40); RED CELL DISTRIBUTION WIDTH 13.4 % (12.0-15.0); WHITE BLOOD COUNT 5.2 x10^3/uL (4.8-10.8)
[2023-09-07 15:41] LABS: THYROID STIMULATING HORMONE 2.27 uIU/mL (0.34-5.60)
[2023-09-07 16:39] LABS: % IRON SATURATION 33 % (20-50); ALBUMIN 4.4 g/dL (3.2-5.5); ALBUMIN/GLOBULIN RATIO 2.1 (1.0-2.2); ALKALINE PHOSPHATASE 78 IU/L (42-121); ALT ALANINE AMINOTRANSFERASE 16 IU/L (10-60); AST ASPARTATE AMINOTRANSFERASE 18 IU/L (10-42); BILIRUBIN,TOTAL 0.5 mg/dL (0.2-1.0); BUN - BLOOD UREA NITROGEN 16 mg/dL (6-20); CALCIUM 10.1 mg/dL (8.5-10.3); CARBON DIOXIDE - CO2 27 mmol/L (21-32); CHLORIDE 106 mmol/L (101-111); CHOL/HDL RATIO 3.4 (<4.4); CHOLESTEROL 196 mg/dL; CREATININE 0.6 mg/dL (0.6-1.3); GFR - MDRD 97 (>89); GLUCOSE 98 mg/dL (74-104); HDL CHOLESTEROL 57 mg/dL; IRON 125 ug/dL (50-212); LDL CHOLESTEROL,CALCULATED 119 mg/dL; LDL/HDL RATIO 2.1 (<4.4); POTASSIUM 4.5 mmol/L (3.5-4.5); SODIUM 137 mmol/L (135-145); TOTAL IRON BINDING CAPACITY 377 ug/dL (250-450); TOTAL PROTEIN 6.5 g/dL (6.4-8.9); TRANSFERRIN 269 mg/dL (203-362); TRIGLYCERIDES 101 mg/dL (48-352); VLDL CHOLESTEROL 20 mg/dL
== END 2023-09-07 08:54 | disposition home or self-care (01) ==
LOC: LAB.S 08:53
PROVIDERS: ATTEND Internal Medicine
DX: I10 Essential (primary) hypertension (principal); E55.9 Vitamin D deficiency, unspecified; M81.0 Age-related osteoporosis without current pathological fracture; E78.5 Hyperlipidemia, unspecified; D64.9 Anemia, unspecified; E53.8 Deficiency of other specified B group vitamins; G47.9 Sleep disorder, unspecified
CPT/HCPCS: 36415; 80053; 80061; 82306; 82607; 82728; 83540; 83721; 84443; 84466; 85025

== ENCOUNTER 2023-10-25 12:58 | Outpatient (CLI) | payer MEDICARE ==
--- NOTE | 2023-10-26 12:21 | Mammography Report ---
BILATERAL DIGITAL SCREENING MAMMOGRAM 3D/2D: 10/25/2023 CLINICAL: Routine screening. Comparison is made to exams dated: 07/17/2022 mammogram, 01/01/2021 mammogram, 10/21/2018 mammogram, mammogram, and 05/16/2015 mammogram - [facility]. There are scattered areas of fibroglandular density in both breasts (category b / 25%-50% glandular t issue). No significant masses, calcifications, or other findings are seen in either breast. There has been no significant interval change. IMPRESSION: NEGATIVE There is no mammographic evidence of malignancy. A 1 year screening mammogram is recommended. Based on the Tyrer Cuzick model (a risk assessment model) the patients lifetime risk is 8.4% and her 10 year risk is 0.0%. According to the ACR, ACS, and NCCN guidelines, an annual breast MRI exam jay g with mammogram is recommended if the patients lifetime risk is 20% or greater. This exam was interpreted at Station ID: [id number]. NOTE: For mammograms, a report in lay terms will be sent to the patient. Approximately 15% of breast malignancies will not be visualized mammographically. In the management of a palpable breast mass, a negative mammogram must not discourage biopsy of a clinically suspicious lesion. Electronically Signed By: Candelario lopes/maria isabel:10/25/2023 14:15:32 letter sent: No_Letter ACR BI-RADS Category 1: Negative 3341F PARENCHYMAL PATTERN: (A) - The breast(s) demonstrate(s) scattered fibroglandular densities. BI-RADS CATEGORY: (1) - 1 Mammogram [id number] 1 year screening LATERALITY: (B)
== END 2023-10-25 12:59 | disposition home or self-care (01) ==
LOC: DI 12:58
PROVIDERS: ATTEND Internal Medicine
DX: Z12.31 Encounter for screening mammogram for malignant neoplasm of breast (principal); R92.323 Mammographic fibroglandular density, bilateral breasts

== ENCOUNTER 2024-07-10 10:05 | Day surgery (SDC) | payer MEDICARE ==
[2024-07-10] MEDS: LACTATED RINGERS 1,000 ML IV ONE (10:42)
--- NOTE | 2024-07-10 10:49 | ANESTHESIA ---
Pre-Anesthesia VS, & Labs - Diagnosis FAMILY HX SCREENING - Procedure COLONOSCOPY Vital Signs: Temp Pulse Resp BP Pulse Ox O2 Flow Rate 36.3 C L 82 16 150/80 H 96 07/10/24 10:25 07/10/24 10:25 07/10/24 10:25 07/10/24 10:25 07/10/24 10:25 Height: 5 ft 4 in Weight (kg): 85 kg Body Mass Index: 32.1 BMI Classification: Obese - NPO >8 hours (BOWEL PREP COMPLETED) - Is Patient ?: No Home Medications and Allergies Home Medications: Ambulatory Orders Ezetimibe [Zetia] 10 mg ORAL DAILY 07/10/24 Losartan Potassium 25 mg ORAL DAILY 07/10/24 Propranolol [Inderal] 20 mg ORAL HS PRN 07/10/24 Ibuprofen [Advil] 200 mg PO DAILY 03/09/16 Ezetimibe [Zetia] 10 mg ORAL DAILY 07/10/24 Losartan Potassium 25 mg ORAL DAILY 07/10/24 Propranolol [Inderal] 20 mg ORAL HS PRN 07/10/24 Allergies/Adverse Reactions: Allergies Allergy/AdvReac Type Severity Reaction Status Date / Time alendronate sodium Allergy Severe Unknown Verified 07/06/24 14:26 [From Fosamax] Sulfa (Sulfonamide Allergy Respiratory Verified 03/07/19 16:51 Antibiotics) Anes History & Medical History - Anesthetic History Anesthesia Complications: reports: No previous complications Family history of Anesthesia Complications: Denies Family history of Malignant Hyperthermia: Denies - Medical History Cardiovascular: reports: Hypertension, High cholesterol Pulmonary: reports: None Gastrointestinal: reports: Colon polyps Urinary: reports: Frequency Neuro: reports: None Musculoskeletal: reports: Osteoarthritis Endocrine/Autoimmune: reports: None Blood Disorders: reports: None Skin: reports: None Smoking Status: Never smoker Psychosocial: reports: Alcohol (GLASS OF WINE EACH EVENING) History of Cancer?: Yes (SKIN CANCER REMOVED/RESOLVED; NO CHEMO OR RADIATION) - Surgical History General: reports: Colonoscopy Eyes Ears Nose Throat (EENT): reports: Cataracts Gynecologic: reports: Hysterectomy Orthopedic: reports: Knee replacement, Arthroscopic surgery, Other Results - EKG Results EKG Comparison: Reviewed EKG, Normal EKG Exam General: Alert, Oriented x3, Cooperative, No acute distress Mouth Openin Fingerbreadth Neck Mobility: Normal Mallampati classification: IV Thyromental Distance: less than 4 cm Mental/Cognitive Status: Alert/Oriented X3, Normal for patient Cognitive Status: Within normal limits Plan Anesthesia Type: General Consent for Procedure(s) Verified and Reviewed: Yes Code Status: Attempt Resuscitation ASA classification: 3-Severe systemic disease Is this case an emergency?: No
[2024-07-10] MEDS ORDERED: PROPOFOL 500 MG/50 ML 500 MG/50 ML VIAL ONE (12:04)
[2024-07-10] MEDS ORDERED: ePHEDrine 50 MG/ML VIAL IVP ONE (12:35)
[2024-07-10] MEDS: LACTATED RINGERS 200 ML IV ONE (13:07)
[2024-07-10 13:41] VITALS: BP 128/68; O2SAT 99
--- NOTE | 2024-07-10 15:26 | ANESTHESIA POST OP EVALUATION ---
Anesthesia Post Eval - Post Anesthesia Eval Vitals: Last Vital Signs Temp 36.5 C 07/10/24 13:22 Pulse 69 07/10/24 13:22 Resp 16 07/10/24 13:22 BP 128/68 07/10/24 13:22 Pulse Ox 99 07/10/24 13:22 O2 Flow Rate CV Function Including HR & BP: Stable Pain Control: Satisfactory Nausea & Vomiting: Negative Mental Status: Baseline Respiratory Status: Airway Patent Hydration Status: Satisfactory Anesthesia Complications: None
== END 2024-07-10 10:06 | disposition home or self-care (01) ==
LOC: SDS 10:05
PROVIDERS: ATTEND Surgery
DX: Z12.11 Encounter for screening for malignant neoplasm of colon (principal); K57.30 Diverticulosis of large intestine without perforation or abscess without bleeding; K64.1 Second degree hemorrhoids; Z80.0 Family history of malignant neoplasm of digestive organs
CPT/HCPCS: G0105; J7120